=== PATIENT | female | born 1995 | race African-American/Black ===

== ENCOUNTER 2017-03-26 09:15 | Inpatient (IN) | payer OTHER ==
[2017-03-26] MEDS ORDERED: DEXTROSE 5%-LACTATED RINGERS 1,000 ML IV SCH (12:15)
--- NOTE | 2017-03-26 12:59 | HP ---
Past Medical History - Admission Chief Complaint: labor History of Present Illness: 21 yo @ 38 6/7 wks, EDC 03/21/2017 complicated by: 1. Transfer of care at [address] positive, negative TONY 01/30/2017 Patient presents with chief complaint of contractions, found to be ruptured on examination. She reports movment, denies vaginal bleeding. History Source: Patient Limitations to Obtaining History: No Limitations - Past Medical History Cardiovascular: No: HTN Pulmonary: No: Asthma Gastrointestinal: No: GERD ...: 4 ...Para: 0 ...Term: 0 ...: 0 ...Spon : 0 ...Induced : 3 ...LMP: 06/06/16 ... Weeks Gestation by Dates: 39.2 ...EDC by Dates: 03/31/17 ...EDC by Sono: 03/31/17 Heme/Onc: No: Anemia - Past Surgical History Hx Myomectomy: No Hx Transabdominal Cerclage: No Additional Surgical History: eTOP x 3 - Smoking History Smoking history: Never smoked Have you smoked in the past 12 months: No Aproximately how many cigarettes per day: 0 - Alcohol/Substance Use Hx Alcohol Use: No History of Substance Use: reports: None - Social History History of Recent Travel: No Home Medications - Allergies Allergies/Adverse Reactions: Allergies Allergy/AdvReac Type Severity Reaction Status Date / Time No Known Allergies Allergy Verified 03/23/17 06:00 - Home Medications Home Medications: Ambulatory Orders Vitamins (Sjr) - 1 tab PO DAILY 03/23/17 Family Disease History - Family Disease History Family History: Denies Review of Systems - Review of Systems Constitutional: reports: No Symptoms HENT: reports: No Symptoms Cardiovascular: reports: No Symptoms Respiratory: reports: No Symptoms Gastrointestinal: reports: No Symptoms Genitourinary: reports: No Symptoms Breasts: reports: No Symptoms Reported Musculoskeletal: reports: No Symptoms Integumentary: reports: No Symptoms Neurological: reports: No Symptoms Psychiatric: reports: No Symptoms Physical Exam - Maternity Constitutional: Yes: Well Nourished, No Distress, Calm Neck: Yes: Supple Cardiovascular: Yes: Regular Rate and Rhythm Lungs: Clear to auscultation - Abdominal Exam/OB Fundal Height: 40 Number of Fetuses: Single Presentation: Vertex Contractions: Yes Regularity: Regular Intensity: Moderate Category: I Accelerations: Non-Uniform Decelerations: None - Vaginal Exam/OB Vaginal Bleediing: No Speculum Exam: No Dilatation (cm): 5 Effacement (%): 80 Amniotic Membrane Status: Ruptured Amniotic Fluid: Yes: Clear Station: 0 - Physical Exam Edema: No ...Motor Strength: WNL - Labs Lab Results: PNL: O positive, antibody negative, RPR NR, [place] immune, HBS Ag negative, GBS positive, HIV Negative Hemorrhage Risk Assessment - Risk Factors Medium Risk Factors: Yes: None High Risk Factors: Yes: None Risk Score: 1 Risk Level: Medium Risk Assessment/Plan 21 yo @ 38 6/7 wks, active labor 1. Admit to L&D 2. Routine labs collected and sent 3. GBS positive, will start ampicilin per protocol 4. Will continue expectant manameng
[2017-03-26] MEDS ORDERED: ELECTROLYTE-148 SOLN 1,000 ML IV SCH (13:00)
[2017-03-26] MEDS ORDERED: AMPICILLIN - 2 GM in SODIUM CHLORIDE 100 ML IVPB ONE (13:30)
[2017-03-26 13:34] LABS: BASOPHIL 0.4 % (0-2.0); EOSINOPHIL 0.5 % (0-4.5); MCH 24.2 pg (25.7-33.7); MCHC 31.7 g/dl (32.0-36.0); MEAN CELL VOLUME 76.5 fl (80-96); MEAN PLT VOLUME 11.1 fl (7.5-11.1); PLATELET COUNT 141 K/MM3 (134-434); RDW 14.9 % (11.6-15.6); WHITE BLOOD COUNT 13.7 K/mm3 (4.0-10.0)
[2017-03-26 13:39] VITALS: BMI 24.3
[2017-03-26 13:59] LABS: ANION GAP 11 (8-16); CALCIUM 8.8 mg/dL (8.5-10.1); CO2 21 mmol/L (21-32); CREATININE 0.6 mg/dL (0.55-1.02); GLUCOSE,RANDOM 192 mg/dL (74-106)
[2017-03-26] MEDS ORDERED: TUBERCULIN PPD 5 TU/0.1ML SYRINGE (IN PATIENT USE ONLY) ID ONE (14:00)
[2017-03-26 14:14] LABS: INR 0.95 (0.82-1.09); PROTHROMBIN TIME (PATIENT) 10.4 SEC (9.98-11.88)
[2017-03-26 14:17] LABS: ACTIVATED PTT 23.9 SECONDS (26.9-34.4)
[2017-03-26] MEDS ORDERED: D5W-LR W/ 20 UNITS OXYTOCIN 1,000 ML IV SCH (15:30)
[2017-03-26] MEDS ORDERED: BENZOCAINE 20% 57 GM BOTTLE TP PRN (15:30)
[2017-03-26] MEDS ORDERED: oxyCODONE HCL 5 MG TABLET PO PRN (15:30)
[2017-03-26] MEDS ORDERED: WITCH HAZEL 50% (TUCKS) 40 PAD/JAR PAD TP PRN (15:30)
[2017-03-26] MEDS ORDERED: FENTANYL/BUPIVACAINE/NS/PF - PCEA - 50 ML DISP.SYRIN EP SCH (15:30)
[2017-03-26] MEDS ORDERED: BENZOCAINE 28 GM HEMORRHOIDAL OINTMENT TP PRN (15:30)
[2017-03-26] MEDS ORDERED: METHYLERGONOVINE MALEATE 0.2 MG/1 ML AMP IM PRN (15:30)
[2017-03-26] MEDS ORDERED: BISACODYL 10 MG SUPP.RECT RC PRN (15:30)
[2017-03-26] MEDS: ACETAMINOPHEN 325 MG TABLET (FP) PO PRN ×2 (16:00→21:38)
[2017-03-26] MEDS: IBUPROFEN 600 MG TABLET (FP) PO PRN ×2 (16:00→21:37)
[2017-03-26] MEDS ORDERED: AMPICILLIN - 1 GM in SODIUM CHLORIDE 100 ML IVPB SCH (16:15)
--- NOTE | 2017-03-26 22:38 | PN ---
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 25min - 1 Minute Total Score: 9 5 Minutes Total Score: 9 - [place] Feeding Plan Initial Plan: Elected not to breastfeed exclusively throughout hospitalization Benefits of Exclusively reinforced: Yes Remarks - Remarks Remarks: Normal spontaneous delivery w/o complications. Mother and baby are well.
--- NOTE | 2017-03-27 07:53 | PN ---
Post Progress Note - Subjective Subjective: Patient without acute complaints. Reports tolerating oral intake without nausea or vomiting. Ambulating without dizziness. Denies fevers or chills. Pain well controlled with oral pain medication. without difficulty. Passing flatus. Post Day: 1 Type of Delivery: Vital Signs: Vital Signs Temperature 98.5 F 03/27/17 06:00 Pulse Rate 91 H 03/27/17 06:00 Respiratory Rate 20 03/27/17 06:00 Blood Pressure 123/75 03/27/17 06:00 O2 Sat by Pulse Oximetry (%) 100 03/26/17 14:40 Breast Exam: Yes: Soft Uterus: Yes: Fundus Firm, Fundus below umbilicus Abdomen/GI: Yes: Abdomen soft, Passing flatus, Tolerating PO. No: Abdominal Distention, Tender Lochia: Yes: Serosa Lochia, amount: Small Perineum: Yes: Laceration Activity: Ambulating - Labs Labs: CBC WBC 13.7 K/mm3 (4.0-10.0) H 03/26/17 13:10 RBC 3.93 M/mm3 (3.60-5.2) 03/26/17 13:10 Hgb 9.5 GM/dL (10.7-15.3) L 03/26/17 13:10 Hct 30.0 % (32.4-45.2) L 03/26/17 13:10 MCV 76.5 fl (80-96) L 03/26/17 13:10 MCHC 31.7 g/dl (32.0-36.0) L 03/26/17 13:10 RDW 14.9 % (11.6-15.6) 03/26/17 13:10 Plt Count 141 K/MM3 (134-434) 03/26/17 13:10 MPV 11.1 fl (7.5-11.1) 03/26/17 13:10 Neutrophils % 79.0 % (42.8-82.8) 03/26/17 13:10 Lymphocytes % 14.2 % (8-40) 03/26/17 13:10 Monocytes % 5.9 % (3.8-10.2) 03/26/17 13:10 Eosinophils % 0.5 % (0-4.5) 03/26/17 13:10 Basophils % 0.4 % (0-2.0) 03/26/17 13:10 Assessment/Plan 21 yo PPD #1 s/p , afebrile, vital signs stable, doing well 1. Continue routine care. 2. AM CBC with mild anemia 3. Rh positive status, no rhogam indicated. 4. Encourage ambulation 5. Continue oral pain medication 6. Anticipate discharge home day # 2
[2017-03-27] MEDS: IBUPROFEN 600 MG TABLET (FP) PO PRN ×2 (08:37→21:46)
[2017-03-27] MEDS: ACETAMINOPHEN 325 MG TABLET (FP) PO PRN ×2 (08:38→21:45)
[2017-03-27 08:42] LABS: BASOPHIL 0.4 % (0-2.0); EOSINOPHIL 0.8 % (0-4.5); MCH 24.4 pg (25.7-33.7); MCHC 31.8 g/dl (32.0-36.0); MEAN CELL VOLUME 76.8 fl (80-96); MEAN PLT VOLUME 11.1 fl (7.5-11.1); NEUTROPHILS 79.3 % (42.8-82.8); PLATELET COUNT 141 K/MM3 (134-434); RDW 15.1 % (11.6-15.6); WHITE BLOOD COUNT 15.7 K/mm3 (4.0-10.0)
[2017-03-27] MEDS: PRENATAL VITAMINS W/ FOLIC ACID TABLET (FP) PO SCH (10:33)
[2017-03-27] MEDS ORDERED: SENNOSIDES/DOCUSATE COMBO (SENNA PLUS) TABLET (UD) PO PRN (22:00)
--- NOTE | 2017-03-28 04:25 | DS ---
Physical Exam-PER DIEM CLERK Vital Signs: Vital Signs Temperature 98.3 F 03/27/17 22:00 Pulse Rate 106 H 03/27/17 22:00 Respiratory Rate 20 03/27/17 22:00 Blood Pressure 131/78 03/27/17 22:00 O2 Sat by Pulse Oximetry (%) 100 03/26/17 14:40 Constitutional: Yes: Well Nourished, No Distress, Calm Eyes: Yes: WNL, Conjunctiva Clear, EOM Intact HENT: Yes: WNL, Atraumatic, Normocephalic Neck: Yes: WNL, Supple, Trachea Midline Cardiovascular: Yes: WNL, Regular Rate and Rhythm Respiratory: Yes: WNL, Regular, CTA Bilaterally Gastrointestinal: Yes: WNL ...Rectal Exam: Yes: WNL Renal/: Yes: WNL ....Post : Yes: Uterus firm, Uterus non-tender, Slight lochia rubra Breast(s): Yes: WNL Musculoskeletal: Yes: WNL Extremities: Yes: WNL Edema: No Integumentary: Yes: WNL Neurological: Yes: WNL, Alert, Oriented ...Motor Strength: WNL Psychiatric: Yes: WNL, Alert, Oriented Labs: CBC, BMP 03/27/17 08:26 03/26/17 13:10 Delivery - Delivery Vaginal Delivery: No Problems, Spontaneous Type of Anesthesia: Local, Epidural Episiotomy/Laceration: Vaginal Extension/lac (bilateral labial tears at 2:00 and 10:00) EBL (cc): 300 Delivery, Single - Stages of Labor Date 1st Stage Initiatied: 03/26/17 Time 1st Stage Initiated: 06:00 Date 2nd Stage Initiated: 03/26/17 Time 2nd Stage Initiated: 14:30 Date of Delivery: 03/26/17 Time of Delivery: 15:20 Time Placenta Delivered: 15:30 Placenta: Yes: Spontaneous, Normal Configuration - 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 25min - 1 Minute Total Score: 9 5 Minutes Total Score: 9 - [place] Feeding Plan Initial Plan: Elected not to breastfeed exclusively throughout hospitalization Benefits of Exclusively reinforced: Yes Discharge Summary Reason For Visit: LABOR ASSESS Procedures: Principal: Condition: Good - Instructions Diet, Activity, Other Instructions: regular diet, follow up office 4 weeks Referrals: Malu Mcintosh MD [Staff Physician] - Disposition: HOME - Home Medications Comprehensive Discharge Medication List: Ambulatory Orders Vitamins (Sjr) - 1 tab PO DAILY 03/23/17 Ibuprofen [Motrin -] 600 mg PO QID #28 tablet 03/27/17
[2017-03-28] MEDS: ACETAMINOPHEN 325 MG TABLET (FP) PO PRN (06:25)
[2017-03-28] MEDS: IBUPROFEN 600 MG TABLET (FP) PO PRN (06:25)
[2017-03-28] MEDS: PRENATAL VITAMINS W/ FOLIC ACID TABLET (FP) PO SCH (09:29)
[2017-03-28 10:05] VITALS: BP 129/97; PULSE 85; TEMP 97.8
== END 2017-03-28 12:50 | disposition home or self-care (01) | DRG 775 ==
LOC: JDEL 09:15 → JLDR 11:55 → J3W 17:58
PROVIDERS: ADMIT Obstetrics & Gynecology; ATTEND Obstetrics & Gynecology
PROC: 0W8NXZZ Division of Female Perineum, External Approach (ICD-10-PCS; principal; 2017-03-26)
PROC: 10E0XZZ Delivery of Products of Conception, External Approach (ICD-10-PCS; 2017-03-26)
PROC: 0HQ9XZZ Repair Perineum Skin, External Approach (ICD-10-PCS; 2017-03-26)
DX: O70.0 First degree perineal laceration during delivery (principal); Z3A.38 38 weeks gestation of pregnancy; Z37.0 Single live birth; Z22.330 Carrier of Group B streptococcus
CPT/HCPCS: 36415; 59409; 80048; 85025; 85610; 85730; 86593; 86850; 86900; 86901